=== PATIENT | male | born 1945 | race Caucasian/White ===

== ENCOUNTER 2017-02-01 17:03 | Inpatient (IN) | payer OTHER ==
[~2017-02-01] VITALS: Ht 167.6 cm; Wt 108.0 kg
[2017-02-01 17:09] VITALS: BP 139/55; PULSE 66; RESP 16; O2SAT 100
--- NOTE | 2017-02-01 18:30 | ED.REPORT ---
HPI-Abd Pain M 40 and Over Date of Service February 01, 2017 ED Provider: Sean Carpenter DO A 71 year old male with a previous history of renal cell carcinoma s/p left nephrectomy (2016) and [place] presents to the ED with abdominal discomfort that began a few days ago. Patient was sent by his PCP (Dr. Nation) after blood work revealed possible pyelonephritis. Patient has also been experiencing decreased urinary urgency and urinary retention. He denies any recent chest discomfort or dysuria. Nursing Notes Stated Complaint: KINDNEY INFECTION PER BLOOD WORK/SENT FROM DR NATION Chief Complaint: Male Abdominal Pain Nursing Notes Reviewed: Yes Allergies: Coded Allergies: No Known Allergies (Unverified , 02/01/17) Scheduled Albuterol/Ipratropium (Combivent Respimat Inhal [place]) 120 Spr/4 Gm Inhaler 1 PUFF IH QID Amlodipine (Amlodipine) 5 Mg Tablet 5 MG PO DAILY Ascorbic Acid (Vitamin C) 500 Mg Capsule.er 500 MG PO DAILY Aspirin (Aspirin) 81 Mg Tablet 81 MG PO DAILY Atorvastatin (Lipitor) 10 Mg Tab 10 MG PO DAILY Budesonide/Formoterol 160-4.5 mcg Inh (Symbicort 160-4.5 mcg Inh) 120 Puff Inhaler 1 PUFF INHALATION BID Calcipotriene Cream (Calcipotriene Cream) 30 Appl/60 Gm Cream 1 APPLIC TOPICAL BID Cholecalciferol (Vitamin D3) (Vitamin D3) 1,000 Unit Tab.chew 2,000 UNIT PO DAILY Cyanocobalamin (Vitamin B-12) (Vitamin B-12) 1,000 Mcg Tab.subl 1,000 MCG SL DAILY Febuxostat (Uloric) 40 Mg Tablet 40 MG PO DAILY Ferrous Sulfate (Ferrous Sulfate) 325 Mg Tablet 325 MG PO Q2DAY Fluticasone Propionate (Fluticasone Propionate Nasal) 16 Gm [place].susp 2 SPRAY NS DAILY Gabapentin (Gabapentin) 300 Mg Capsule 300 MG PO HS Losartan Potassium (Losartan Potassium) 25 Mg Tablet 25 MG PO DAILY Metoprolol Succinate ER (Metoprolol Succinate ER) 25 Mg Tab.er.24h 12.5 MG PO BID Montelukast (Montelukast) 10 Mg Tablet 10 MG PO DAILY [place]-3/Dha/Epa/Fish Oil (Fish Oil 1,000 mg Softgel) 1 Each Capsule 1 EACH PO BID Omeprazole (Omeprazole) 20 Mg Capsule.dr 20 MG PO BID Prazosin (Prazosin) 1 Mg Capsule 3 MG PO HS Sertraline HCl (Sertraline) 100 Mg Tablet 100 MG PO DAILY Scheduled PRN Acetaminophen/Codeine 300-30mg (Acetaminophen/Codeine 300-30mg) 1 Each Tablet 1 TABLET PO QID PRN PRN Pain Carbamide Peroxide (Earwax Treatment Drops) 6.5 % Drops 5-10 DROP OT BID PRN PRN ear wax removal Lidocaine (Lidoderm) 700 Mg Adh..patch 1 PATCH TP DAILY PRN PRN For Pain Lidocaine Cream (Lidocaine Cream) 5 Gm Cream..g. 1 APPLIC TOPICAL DAILY PRN PRN joint pain General Time Seen by MD: 18:29 Chief Complaint Abdominal pain Hx Obtained From: Patient Arrived By: Walk-in Sudden in Onset?: No Symptom Duration: Since onset Progression since Onset: Unchanged Quality: Painful Radiation: : Does not radiate Severity: Current: Mild Severity: Maximum: Mild Associated with: Reports: Urinary retention, Denies: Chest pain, Urinary tract symptoms Pertinent Negative: Pt denies other symptoms Recent Healthcare: No recent hospitalization, Recent doctor visit Risk Factors )( AAA Risk Stratification Risk factors reviewed Past Medical History Current medication list includes: 180 mg of Marah gingko mens 50+ MV 81 mg of ASA 1 mg of Prazosin 5 mg of amlodipine vitamin D (200mg) vitamin B12 (1000mg) vitamin C Fish oil (1000mg) 300mg of gabapentin 10 mg of atorvastatin Magnesium Iron (325mg) 25 BID metoprolol 210 mg febuxostat Omeprazole 20mg BID Tylenol Past Medical History Renal cell carcinoma [place] Past Surgical History Nephrectomy (2016) Smoking History Unknown if Ever Smoker Social History Other Social History: Good social support, Ambulatory Status Independent Review of Systems Cardiovascular: Denies: Chest pain, Palpitations GI: Reports: Abdominal pain Male: Reports Urinary urgency, Reports Urination decreased, Denies Dysuria Complete sys rev & neg: except as marked. Physical Exam Initial Vital Signs Vital Signs (First) Date Time Temp Pulse Resp B/P Pulse Ox O2 Delivery O2 Flow Rate FiO2 02/01/17 17:09 36.2 66 16 139/55 100 Room Air Initial VS: Reviewed Head / Eyes: Atraumatic, Normocephalic, PERRL Neck: Supple, Non-tender, Full range of motion Skin: Warm, Dry, No cyanosis Neurologic: Alert, Oriented, Nonfocal Psychiatric: Mood/affect normal, Behavior normal, Normal thought content General/Constitutional: Awake, Alert, No acute distress, Well appearing, Well developed Respiratory / Chest: Atraumatic, Breath sounds NL, Breath sounds = bilat, No respiratory distress Cardiovascular: Heart rate NL, Regular rhythm, Heart sounds NL Lower Ext Edema: Positive: Non-Pitting (Bilateral) Abdomen: Atraumatic, Soft, Non-tender Back: Atraumatic, Inspection NL Upper Extremity / MS: Atraumatic, Inspection NL, Neurologic intact, Vascular intact Lower Extremity / Pelvis / MS: Atraumatic, Neurologic intact, Vascular intact Interpretation & Diagnostics US RETROPERITONEAL SONOGRAM Read by Radiology IMPRESSION: 1. Normal ultrasound appearance of right kidney. No hydronephrosis. 2. Left nephrectomy. 3. Cholelithiasis with a non-mobile gallstone. Dictated by: Barbara Leo M.D. on 02/01/2017 at 21:31 Lab Results Interpretation Result Diagram: 02/01/17 1915 02/01/17 2119 Test 02/01/17 17:58 02/01/17 19:15 02/01/17 21:19 Urine Color Yellow (YELLOW) Urine Appearance Clear (CLEAR,HAZY) Urine pH 5.5 (5.0-8.0) Urine Specific [place] 1.020 (1.003-1.035) Urine Protein Tracemg/dL (NEG,TRACE) Urine Glucose (UA) Negativemg/dL (NEGATIVE) Urine Ketones Negativemg/dL (NEGATIVE) Urine Occult Blood Negative (NEGATIVE) Urine Nitrite Negative (NEGATIVE) Urine Bilirubin Negative (NEGATIVE) Urine Urobilinogen Normalmg/dL (NORMAL) Urine Leukocyte Esterase Negative (NEGATIVE) Urine RBC 0-2/hpf (0-2) Urine WBC 0-5/hpf (0-5) Urine Epithelial Cells Occasional/hpf (NONE-MOD) Urine Crystals None seen (NONE SEEN) Urine Bacteria None/hpf (NONE-FEW) Urine Hyaline Casts None/lpf (NONE) Urine Granular Casts Rare (NONE SEEN) Urine Waxy Casts None seen (NONE SEEN) Urine Red Blood Cell Casts None seen (NONE SEEN) Urine White Blood Cell Casts None seen (NONE SEEN) Urine Mucus None seen (None Seen) Urine Trichomonas None seen (NONE SEEN) Urine Yeast None (NONE SEEN) Urinalysis Comment None Urine Culture Reflexed Not indicated Hold Urine Received (Received) White Blood Count 9.8th/mm3 (3.8-10.1) Red Blood Count 4.77mil/mm3 (4.40-5.80) Hemoglobin 13.1g/dL (13.8-17.2) Hematocrit 39.9% (41.0-50.0) Mean Corpuscular Volume 83.6fL (81-100) Mean Corpuscular Hemoglobin 27.5pg (27.0-35.0) Mean Corpuscular Hemoglobin Concent 32.8% (32.0-37.0) Red Cell Distribution Width 14.5% (12.3-15.4) Platelet Count 257bil/L (150-400) Neutrophils (%) (Auto) 92.0% (40-74) Lymphocytes (%) (Auto) 4.0% (14-46) Monocytes (%) (Auto) 3.3% (4-12) Eosinophils (%) (Auto) 0.3% (0-5) Basophils (%) (Auto) 0.1% (0-3) Sodium Level 133mEq/L (134-144) Chloride Level 102mEq/L (97-108) Carbon Dioxide Level 18mmol/L (18-29) Blood Urea Nitrogen 36mg/dL (8-27) Creatinine 2.37mg/dL (0.76-1.27) Estimat Glomerular Filtration Rate 29mL/min (>59) Glucose Level 134mg/dL (60-99) Calcium Level 9.5mg/dL (8.5-10.1) Total Bilirubin 0.3mg/dL (0.0-1.2) Aspartate Amino Transf (AST/SGOT) 15U/L (0-50) Alanine Aminotransferase (ALT/SGPT) 10U/L (0-44) Alkaline Phosphatase 136U/L (25-160) Total Protein 8.9g/dL (6.4-8.4) Albumin 4.0g/dL (3.4-5.0) Hold [place] Top Tube Received (Received) Potassium Level 6.0mEq/L (3.5-5.2) ECG Interpretation ECG Interpretation: Sinus Rhythm Rate 63 No signs of hyperkalemia T waves flat Time: 20:04 Interpreted by: ED physician X-Ray Abdominal Interpretation Re-Eval/Medical Decision Med Decision/Clinical Course 71-year-old male resents with hyperkalemia and associated acute on chronic renal insufficiency related to prior nephrectomy and multiple medical comorbidities. He was fluid resuscitated carefully. The hyperkalemia was treated with insulin, glucose, albuterol, Kayexalate and IV fluids. The potassium came down from 6.9 to 6 EKG showed sinus rhythm without peaking T waves Ultrasound of his bladder showed that he had an empty bladder. Ultrasound of his kidneys showed that he does not have hydronephrosis. I consulted with nephrology. The plan will be admission to the hospital careful hydration and further evaluation of his azotemia and electrolyte abnormality. Time of Eval: 20:11 Patient Status: Condition improved Re-Evaluation/Progress Note: He is informed of his lab results and diagnosis. All of the patient's questions about being admitted are addressed. Consultation #1: Referral / Consult Name: Cherelle Rangel DO Consulted With: Hospitalist Call Returned at: 22:24 Maintenance Electrician: Will see patient, Agrees with eval, Agrees with plan, Accepts admit Consultation #2: Referral / Consult Name: Franklin Magallanes DO Consulted With: Nephrology Call Returned at: 20:23 Maintenance Electrician: Will see patient, Agrees with eval, Agrees with plan Counseled Regarding: Diagnosis, Lab results, Need for admission Discharge & Departure Primary Impression: Hyperkalemia Additional Impression: Acute renal insufficiency Disposition: ADMITTED TO HOSPITAL Vital Signs - All Vital Signs Date Time Temp Pulse Resp B/P Pulse Ox O2 Delivery O2 Flow Rate FiO2 02/01/17 21:10 76 19 155/53 98 02/01/17 20:08 69 22 149/46 97 Room Air 02/01/17 17:09 36.2 66 16 139/55 100 Room Air )( All Prior VS Reviewed: Yes Condition: Stable Referrals: [facility] Crit Care Except Billable Proc Time Spent: 75-104 minutes (managing hyperkalemia with iv medications) Services Performed: Patient management by me, Time spent at bedside, Reviewing test results, Reviewing imaging, Discussing patient care, Documentation in record, Time with fam/surrogate Scribe Attestation Portions of this note were transcribed by Jeannette Campos. I, Dr. Carpenter personally performed the history, physical exam and medical decision-making; I reviewed and confirmed the accuracy of the information in the transcribed note. Signed by: Bryan Moser, 02/01/17 [id number]. copies to: [facility] Sean Carpenter DO February 01, 2017 18:30 JEANNETTE CAMPOS February 01, 2017 18:45
[2017-02-01 19:27] LABS: BASOPHILS % (AUTO) 0.1 % (0-3); EOSINOPHILS % (AUTO) 0.3 % (0-5); MONOCYTES % (AUTO) 3.3 % (4-12); Mean Corpuscular Hemoglobin 27.5 pg (27.0-35.0); Mean Corpuscular Volume 83.6 fL (81-100); Platelet Count 257 bil/L (150-400)
[2017-02-01] MEDS ORDERED: Dextrose 10% 250 ML in IV Bag 1 EACH IV ONE (19:55)
[2017-02-01] MEDS ORDERED: Insulin Human REGular-Omnicell 100 Unit/mL IV ONE (19:55)
[2017-02-01] MEDS ORDERED: 0.9% Sodium Chloride 1,000 ML IV SCH (19:55)
[2017-02-01] MEDS ORDERED: Albuterol 2.5 mg/3 mL Inhalation Solution NEB ONE (20:00)
[2017-02-01 20:08] VITALS: BP 149/46; PULSE 69; RESP 22; O2SAT 97
[2017-02-01] MEDS ORDERED: DEXTROSE IV ONE (20:20)
[2017-02-01 21:10] VITALS: BP 155/53; PULSE 76; RESP 19; O2SAT 98
[2017-02-01] MEDS ORDERED: LIDO5CRE17 TOPICAL (21:10)
[2017-02-01] MEDS ORDERED: ASCO500C6 PO (21:10)
[2017-02-01] MEDS ORDERED: IPRA4AER IH (21:10)
[2017-02-01] MEDS ORDERED: PRAZ1CAP2 PO (21:10)
[2017-02-01] MEDS ORDERED: ASPI-973 PO (21:10)
[2017-02-01] MEDS ORDERED: CYAN100017 SL (21:10)
[2017-02-01] MEDS ORDERED: CALC60CR3 TOPICAL (21:10)
[2017-02-01] MEDS ORDERED: SYMINH INHALATION (21:10)
[2017-02-01] MEDS ORDERED: OMEG-38 PO (21:10)
[2017-02-01] MEDS ORDERED: SERT100T9 PO (21:10)
[2017-02-01] MEDS ORDERED: CARB-199 OT (21:10)
[2017-02-01] MEDS ORDERED: GABA-502 PO (21:10)
[2017-02-01] MEDS ORDERED: MONT10TA23 PO (21:10)
[2017-02-01] MEDS ORDERED: METO25TA99 PO (21:10)
[2017-02-01] MEDS ORDERED: LOSA25TA21 PO (21:10)
[2017-02-01] MEDS ORDERED: ATRV10T PO (21:10)
[2017-02-01] MEDS ORDERED: AMLO5TAB2 PO (21:10)
[2017-02-01] MEDS ORDERED: OMEP20CA11 PO (21:10)
[2017-02-01] MEDS ORDERED: CHOL10008 PO (21:10)
[2017-02-01] MEDS ORDERED: FERR-83 PO (21:10)
[2017-02-01] MEDS ORDERED: FLUT16SP NS (21:10)
[2017-02-01] MEDS ORDERED: ACET1TAB42 PO (21:10)
[2017-02-01] MEDS ORDERED: FEBU40TA PO (21:10)
[2017-02-01] MEDS ORDERED: LIDO700A6 TP (21:12)
--- NOTE | 2017-02-01 21:37 | DRSVH ---
PROCEDURE: US RETROPERITONEAL SONOGRAM ([id number]) INDICATIONS: acute renal failure, post nephrectomy, hyperkalemi TECHNIQUE: Real-time scanning was performed of the kidneys and bladder, with image documentation. COMPARISON: None. FINDINGS: Kidneys: Left kidney is surgically absent. Right kidney measures 12.3 cm long. Right renal cortical thickness is 2.2 cm. Renal cortical echotexture is normal. No hydronephrosis or nephrolithiasis. No suspicious solid mass lesions. Incidentally noted is a non-mobile gallstone and gallbladder sludg e. No gallbladder with thickening. Bladder: Pre-void bladder volume is 179 mL. Post-void residual is 0 mL. Pre-void images demonstrat e no intraluminal masses or stones. On pre-void images, the right ureteral jet is noted with color D oppler interrogation. (Of note, ureteral jets may not be detectable in up to 25% of cases due to ins ufficient differences in specific gravity between ureteral and bladder urine). Miscellaneous: No free pelvic fluid. IMPRESSION: 1. Normal ultrasound appearance of right kidney. No hydronephrosis. 2. Left nephrectomy. 3. Cholelithiasis with a non-mobile gallstone. Dictated by: Barbara Leo M.D. on 02/01/2017 at 21:31 Approved by: Barbara Leo M.D. on 02/01/2017 at 21:35
[2017-02-01 23:56] LABS: APPEARANCE,URINE CLEAR (CLEAR,HAZY); COLOR,URINE YELLOW (YELLOW); OCCULT BLOOD,URINE NEGATIVE (NEGATIVE); PH,URINE 5.5 (5.0-8.0)
[2017-02-01 23:57] LABS: UROBILINOGEN,URINE NORMAL (NORMAL)
[2017-02-02] VITALS (13 sets, daily range): BP systolic 144–166; BP diastolic 50–79; PULSE 66–105; RESP 18–24; O2SAT 93–99
[2017-02-02] MEDS ORDERED: Ondansetron 2 mg/mL 2 mL Inj IVPUSH PRN (00:35)
[2017-02-02] MEDS ORDERED: Polyethylene Glycol (PEG) 17 Gm Powder PO PRN (00:35)
[2017-02-02] MEDS ORDERED: Alum-Mag Hydrox-Simeth 30 mL Suspension PO PRN (00:35)
--- NOTE | 2017-02-02 01:26 | PCM.HPMED ---
Subjective Date of Service February 02, 2017 Primary Provider: Admitting Physician: Cherelle Rangel DO [facility]: Cherelle Rangel DO Admit Status: From the Emergency Department Chief Complaint: Hyperkalemia History of Present Illness: Kd Denise is a 71 year old man with a PMH of Left renal cell carcinoma s/p radical nephrectomy, [place], iron deficiency anemia, hyperlipidemia, COPD, depression, BPH, and HTN who presents at the request of his PCP(Dr. Howell) who in the course of running routine labs he was found to have a potassium of 6.8. He was entirely asymptomatic prior to arrival. The patient had unremarkable ECG upon presentation to the ED. He denies chest pain, palpitations, abdominal pain , or changes in bowel or bladder habits. In the ED the patient was given Insulin and glucose, Kayexalate, and started on IV fluids per Dr. Magallanes who was made aware of the case and will likely see the patient tomorrow AM. Review of Systems: Comprehensive ROS negative except as outlined above in the HPI. Allergies Coded Allergies: No Known Allergies (Unverified , 02/01/17) Home Medications Scheduled Albuterol/Ipratropium (Combivent Respimat Inhal [place]) 120 Spr/4 Gm Inhaler 1 PUFF IH QID Amlodipine (Amlodipine) 5 Mg Tablet 5 MG PO DAILY Ascorbic Acid (Vitamin C) 500 Mg Capsule.er 500 MG PO DAILY Aspirin (Aspirin) 81 Mg Tablet 81 MG PO DAILY Atorvastatin (Lipitor) 10 Mg Tab 10 MG PO DAILY Budesonide/Formoterol 160-4.5 mcg Inh (Symbicort 160-4.5 mcg Inh) 120 Puff Inhaler 1 PUFF INHALATION BID Calcipotriene Cream (Calcipotriene Cream) 30 Appl/60 Gm Cream 1 APPLIC TOPICAL BID Cholecalciferol (Vitamin D3) (Vitamin D3) 1,000 Unit Tab.chew 2,000 UNIT PO DAILY Cyanocobalamin (Vitamin B-12) (Vitamin B-12) 1,000 Mcg Tab.subl 1,000 MCG SL DAILY Febuxostat (Uloric) 40 Mg Tablet 40 MG PO DAILY Ferrous Sulfate (Ferrous Sulfate) 325 Mg Tablet 325 MG PO Q2DAY Fluticasone Propionate (Fluticasone Propionate Nasal) 16 Gm [place].susp 2 SPRAY NS DAILY Gabapentin (Gabapentin) 300 Mg Capsule 300 MG PO HS Losartan Potassium (Losartan Potassium) 25 Mg Tablet 25 MG PO DAILY Metoprolol Succinate ER (Metoprolol Succinate ER) 25 Mg Tab.er.24h 12.5 MG PO BID Montelukast (Montelukast) 10 Mg Tablet 10 MG PO DAILY [place]-3/Dha/Epa/Fish Oil (Fish Oil 1,000 mg Softgel) 1 Each Capsule 1 EACH PO BID Omeprazole (Omeprazole) 20 Mg Capsule.dr 20 MG PO BID Prazosin (Prazosin) 1 Mg Capsule 3 MG PO HS Sertraline HCl (Sertraline) 100 Mg Tablet 100 MG PO DAILY Scheduled PRN Acetaminophen/Codeine 300-30mg (Acetaminophen/Codeine 300-30mg) 1 Each Tablet 1 TABLET PO QID PRN PRN Pain Carbamide Peroxide (Earwax Treatment Drops) 6.5 % Drops 5-10 DROP OT BID PRN PRN ear wax removal Lidocaine (Lidoderm) 700 Mg Adh..patch 1 PATCH TP DAILY PRN PRN For Pain Lidocaine Cream (Lidocaine Cream) 5 Gm Cream..g. 1 APPLIC TOPICAL DAILY PRN PRN joint pain PMH Left renal cell carcinoma s/p radical nephrectomy CKD HTN Hyperlipidemia COPD Iron deficiency anemia depression BPH Surgical History Left radical nephrectomy 2016 Family History Family history of DM2 and HTN in multiple family members. Social History Hx Alcohol Use: Yes (Patient not currently drinking) Hx Substance Use: No Hx Tobacco Use: No Smoking Status: Never Smoker, Unknown if Ever Smoker Exam Vital Signs Vital Sign - Last Date Time Temp Pulse Resp B/P Pulse Ox O2 Delivery O2 Flow Rate FiO2 02/02/17 01:01 36.6 68 20 155/65 97 Room Air Intake and Output 02/01/17 02/01/17 02/02/17 Cumulative From/Thru 15:00 23:00 07:00 02/01/17 17:09 - 02/02/17 00:58 Intake Total 150 ml 150 ml Output Total 200 ml 200 ml Balance -50 ml -50 ml Intake IV Total 150 ml 150 ml Output Urine Total 200 ml 200 ml # Voids 1 1 Exam Gen: A/O x3 pleasant cooperative obese man in NAD Neck: Large Bull neck, no JVD, supple, non tender, Full ROM HEENT: PERRL, EOMI, no scleral icterus, no conjunctival pallor CV: RRR, no murmurs rubs or gallops Resp: Lungs CTA BL, no wheezing rales or rhonchi Abd: Large obese protuberant belly, no fluid wave, cannot palpate organs, BS + 4Q, no rebound or guarding, no palpable masses Extr: No cyanosis clubbing or edema Neuro: CN 2-12 grossly intact, no focal neurologic deficit Psych: Pleasant and appropriate mood and affect. Lab and Diagnostics Labs Item Value Date Time Red Blood Count 4.77 mil/mm3 02/01/171914 Neutrophils (%) (Auto) 92.0 % H 02/01/171914 Lymphocytes (%) (Auto) 4.0 % L 02/01/171914 Monocytes (%) (Auto) 3.3 % L 02/01/171914 Eosinophils (%) (Auto) 0.3 % 02/01/171914 Basophils (%) (Auto) 0.1 % 02/01/171914 Estimat Glomerular Filtration Rate 29 mL/min 02/01/171914 Calcium Level 9.5 mg/dL 02/01/171914 Total Bilirubin 0.3 mg/dL 02/01/171914 Aspartate Amino Transf (AST/SGOT) 15 U/L 02/01/171914 Alanine Aminotransferase (ALT/SGPT) 10 U/L 02/01/171914 Alkaline Phosphatase 136 U/L 02/01/171914 Total Protein 8.9 g/dL H 02/01/171914 Albumin 4.0 g/dL 02/01/171914 Result Diagram: 02/01/17191402/01/172118 X-Rays, CTs and MRIs US RETROPERITONEAL SONOGRAM IMPRESSION: 1. Normal ultrasound appearance of right kidney. No hydronephrosis. 2. Left nephrectomy. 3. Cholelithiasis with a non-mobile gallstone. Dictated by: Barbara Leo M.D. on 02/01/2017 at 21:31 Approved by: Barbara Leo M.D. on 02/01/2017 at 21:35 . 12-lead ECG NSR, low voltage leads likely secondary to habitus Assessment & Plan Kd Deinse is a 71 year old male with a PMH of Left renal cell carcinoma s/p radical nephrectomy in 2016 who presents at the behest of his PCP who in the course of routine lab work observed hyperkalemia, which was measured at 6.8 upon presentation. 1. Hyperkalemia, POA, likely acute. Active -Likely secondary to CKD or COURTNEY, baseline Cr uncertain as he has no labs on file and PCP is not in our system -Request PCP records tomorrow AM to establish baseline Cr -6.8 upon presentation, 6.0 upon re-assessment, serial measures q4 -Patient given Insulin, glucose, and Kayexalate in the ED -Continue home Albuterol/ipratropium bromide -Will consider calcium gluconate at next lab measure if downward trend does not continue -NS @ 100 ml/hr -Telemetry monitoring -Patient will be seen by Nephrology in the AM 2. S/P radical nephrectomy, POA, chronic. Active -Cr. elevated at 2.39 with uncertain baseline -BP elevated at 130-150/80-90, baseline BP unknown, home meds include Losartan, amlodipine, and Metoprolol -Avoid nephrotoxic medications -IVF as above -Nephrology will see him in the AM 3. HTN, POA, chronic. active -HOLD home Losartan 25 mg PO daily -Continue home Metoprolol Tartrate 12.5 mg PO BID -Continue home amlodipine 5 mg PO daily 4. COPD, POA, chronic. Active -Switched home med to DuoNeb -Continue home Singulair -Monitor O2 -Supplemental O2 as needed for O2 sat > 86 Other chronic conditions managed with home meds -Depression: Continue home Sertraline -Unspecified neuropathy: Continue home Gabapentin -BPH: Continue home Prazosin Code Status: FULL CODE disposition: Inpatient, anticipated length of stay >2 midnight depending upon evaluation by nephrology and clinical course Pain Evaluation: Adequate Pain Control GI Prophylaxis: H2 ginger VTE Prophylaxis: Sub-Q Heparin (Unfractionated) VTE Mechanical Devices: Intermittant Pneumatic CD Resuscitation Status: CPR: Attempt Resuscitation Attending Statement The patient was seen and examined together with house staff on 02/02/2017 and I agree with the history, exam and plan as outlined in the note above. Soren Singh DO February 02, 2017 01:26 Cherelle Rangel DO February 02, 2017 05:48
[2017-02-02] MEDS: 0.9% Sodium Chloride 1,000 ML IV SCH ×2 (01:34→10:35)
[2017-02-02] MEDS: Albuterol-Ipratropium 3 mL Inhalation Solution NEB SCH ×4 (02:30→21:02)
[2017-02-02] MEDS ORDERED: Insulin Human REGular-Omnicell 100 Unit/mL IV ONE (03:30)
[2017-02-02] MEDS ORDERED: Calcium GLUCOnate 10% (Gm) 1 Gm/10 mL Inj IVPUSH PRN (03:30)
[2017-02-02] MEDS ORDERED: Albuterol 0.5% (5mg/mL) 20 mL Inhalation Solution NEB ONE (03:30)
[2017-02-02] MEDS ORDERED: Dextrose 10% 250 ML IV ONE (03:30)
--- NOTE | 2017-02-02 05:27 | NUR ---
[place] [facility] Patient arrived at 0100. alert and orientedx4 able to make needs known. denies pain. IV SL. RA. Vitals stable. tele in place. admission assessment completed. med rec completed by family in ER. will continue to monitor.
--- NOTE | 2017-02-02 05:30 | NUR ---
Hyperkalemia Lab notified me of critical potassium 6.4. paged new order for insulin, Kayexalate, and albuterol. Patient blood sugar 139 preinsulin. 30 minutes later patient blood sugar 136. no s/s of hypoglycemia. Patient denies pain/discomfort. Tele in place. patient had one BM and states "I feel much better". will continue to monitor.
[2017-02-02 06:00] LABS: BASOPHILS % (AUTO) 0.1 % (0-3); EOSINOPHILS % (AUTO) 0 % (0-5); MONOCYTES % (AUTO) 5.2 % (4-12); Mean Corpuscular Hemoglobin 27.7 pg (27.0-35.0); Mean Corpuscular Volume 83.7 fL (81-100); NEUTROPHILS % (AUTO) 81.8 % (40-74); Platelet Count 238 bil/L (150-400)
--- NOTE | 2017-02-02 06:40 | NUR ---
Vtach Patient had three runs of v-tach 6-7 beats a piece. Patient sleeping. denies pain/discomfort. denies palpitations. states "sometimes the albuterol they give me makes my heartbeat fast, but i feel fine." vitals stable. MD aware. will continue to monitor. AM labs pending.
[2017-02-02] MEDS: Omega-3 Fatty Acids 1,000 mg Capsule PO SCH ×2 (08:24→19:45)
[2017-02-02] MEDS: Ascorbic Acid 500 mg Tablet PO SCH (08:24)
[2017-02-02] MEDS: MeTOProlol XL 25 mg ER24 Tablet PO SCH ×2 (08:25→19:45)
[2017-02-02] MEDS: FEBUXOSTAT 40 MG PO SCH (08:30)
[2017-02-02] MEDS: Heparin 5,000 Unit/mL Inj SUBQ SCH ×2 (08:30→16:29)
[2017-02-02] MEDS: CALCIPOTRIENE 0.005% TOPICAL SCH ×2 (08:30→20:00)
[2017-02-02] MEDS: Sodium Chloride LOK Flush 10 mL Syringe IVFLUSH SCH ×2 (08:30→16:29)
[2017-02-02] MEDS: Fluticasone-Salmererol 250-50 Inhaler INHALATION SCH ×2 (08:36→19:46)
[2017-02-02] MEDS: Fluticasone 0.05% 15 Spray/2 Gm 16 Gm Nasal Spray NOSTRIL SCH (08:37)
--- NOTE | 2017-02-02 15:48 | DRSVH ---
PROCEDURE: MRI BRAIN WITHOUT CONTRAST ([id number]) INDICATIONS: Multiinfarct dementia TECHNIQUE: Non-contrast axial T1 spin echo, axial T2 fast spin echo, sagittal and axial FLAIR, coronal T2 fast s pin echo, axial gradient echo, axial diffusion and ADC through the brain. COMPARISON: None. FINDINGS: Image quality: Excellent. CSF spaces: Ventricles appear symmetric in size and shape. Basal cisterns are patent. No extra-axi al fluid collections. Brain: No intracranial bleeds or mass effects. There is cerebral volume loss for age. There are pe riventricular and deep white matter chronic small vessel ischemic changes. Brainstem appears normal. Diffusion-weighted images show no acute ischemic insults. No chronic ischemic insults. Normal int ravascular flow voids are present. Skull and face: Calvarial bone marrow is normal in signal. Orbits are normal. Sinuses: Sinuses are clear. Fluid signal is present in the mastoids, left greater than right. IMPRESSION: 1. Age-related atrophy and chronic deep white matter ischemic changes. 2. No acute intracranial abnormality. Despite the clinical history, evidence of multiple infarcts is not seen. Dictated by: Eriberto Ovalle M.D. on 02/02/2017 at 15:43 Approved by: Eriberto Ovalle M.D. on 02/02/2017 at 15:46
--- NOTE | 2017-02-02 17:43 | NUR ---
Uneventful Pt pleasant and cooperative with care. Pt is independent in room, SL, and RA. Pt currently resting comfortably in bed with call light within reach, bed low and locked, intentional rounding.
[2017-02-03] VITALS (10 sets, daily range): BP systolic 129–166; BP diastolic 62–89; PULSE 64–86; RESP 18–24; O2SAT 94–97
[2017-02-03] MEDS: Heparin 5,000 Unit/mL Inj SUBQ SCH ×3 (00:24→16:38)
[2017-02-03] MEDS: Sodium Chloride LOK Flush 10 mL Syringe IVFLUSH SCH ×4 (00:24→23:08)
[2017-02-03] MEDS: Albuterol-Ipratropium 3 mL Inhalation Solution NEB SCH ×4 (02:11→19:41)
--- NOTE | 2017-02-03 04:09 | NUR ---
Uneventful Patient slept throughout the night. denies pain. independent in room. SL. RA. Vitals stable. Will continue to monitor
--- NOTE | 2017-02-03 04:35 | CONS ---
[address] [address] CONSULTATION REPORT PATIENT: LOU CRANE : 1945 MR#: [id number] ADMIT: 02/01/2017 JOB ID: [id number] DATE OF SERVICE: HISTORY OF PRESENT ILLNESS: The patient is a very pleasant 71-year-old gentleman who was admitted to [facility] for acute kidney injury. Renal consultation is being sought for further evaluation of his acute kidney injury. The patient is somewhat of a poor historian and there are some different versions of his history. He underwent a left nephrectomy about a year ago at [facility] for renal cell carcinoma. This arose out of some persistent left CVA pain and evaluation of this revealed renal cell carcinoma. He states that following surgery he did not have any radiation or chemotherapy. He has been followed up on a regular basis. In further questioning him, he states that for the last few months he has been taking a variety of nonsteroidal anti-inflammatories [id number] for various arthritic pains. He had some routine blood work done at the [facility] several days ago and his creatinine was found to be elevated at 2.37 and his potassium was 6.9. He was advised to come to the emergency department for further evaluation. Unfortunately, I do not have any baseline creatinine to compare this to. He denies history of any prior hematuria, proteinuria, recurrent urinary tract infections, renal lithiasis, diabetes, or hepatitis. He does have obstructive sleep apnea for which he uses a CPAP machine. He also states that he has a history of hypertension of unknown duration. His home blood pressure systolic readings have averaged between 150 and 160. He has moderate sodium intake. He denies any history of visual problems, seizure . He does state that he has asthma and has intermittent cough and wheezing. He also states that he has had intermittent episodes of chest pain associated with shortness of breath with exertion. There is a history of an MN per the patient approximately three months prior to his surgery. At that time, he was seen at the [facility], and it does not sound like there was a catheterization done. He denies any paroxysmal nocturnal dyspnea or lower extremity edema. He denies any nausea, vomiting, constipation, diarrhea, or significant change in his weight. He does state that he has had some progressive problems with short-term memory issues. PAST MEDICAL HISTORY: Is significant for renal cell carcinoma, status post left nephrectomy as detailed above, hypertension with hypertensive heart disease and hypertensive nephrosclerosis, coronary artery disease, obstructive sleep apnea, he also has a history of asthma, hyperlipidemia, gout, iron deficiency anemia, and depression. PAST SURGICAL HISTORY: Is remarkable for left nephrectomy as detailed above. ALLERGIES: He has no allergy to food or medications. FAMILY HISTORY: Remarkable for diabetes, hypertension, however, there is no history of any renal problems. SOCIAL HISTORY: He denies a history of tobacco use, and states that he currently does not use alcohol or illicit drugs. MEDICATIONS: At time of admission included Combivent inhaler, amlodipine, ascorbic acid, aspirin, atorvastatin, Symbicort inhaler, vitamin D, vitamin B12, Uloric, ferrous sulfate, fluticasone nasal spray, gabapentin, losartan, metoprolol, montelukast, prazosin and sertraline. PHYSICAL EXAMINATION: Revealed a morbidly obese 71-year-old gentleman who was alert and oriented x3 and was not in any distress. His blood pressure was 165/65 with a heart rate of 105. HEENT examination: Remarkable for mild to moderate conjunctival injection. Sclerae, pupils and extraocular muscles were within normal limits. Neck: Supple without adenopathy, thyromegaly or jugular venous distention. Lungs: Clear to auscultation. Heart: Regular and rhythmical with a soft systolic murmur. Abdomen: Distended, but there was no evidence of any diminished bowel sounds. There was no tenderness, rebound, guarding, masses or hepatosplenomegaly. Extremities do not show any evidence of any clubbing, cyanosis, or edema. Skin turgor was good and there was no evidence of any rashes. LABORATORY EXAMINATION: This morning, his white count is 7.7, hemoglobin of 12.6, hematocrit 38.1. Red cell indices, platelet count and differential were normal. This morning, his sodium is 140, potassium 4.9, chloride 106, bicarbonate 15. BUN and creatinine were 31 and 2.0. Glucose was 151. Liver function studies were unremarkable. Urinalysis showed a specific gravity 1.020, pH was 5.5. There was trace protein, however, the rest of his urinalysis was unremarkable. Ultrasound of his remaining kidney showed normal architecture with normal corticomedullary differentiation. There was no evidence of any masses or obstruction. He did have a mild increase in his postvoid residual. IMPRESSION: 1. Acute kidney injury secondary to drug-induced acute kidney injury from nonsteroidals. 2. Solitary kidney. 3. Metabolic syndrome. 4. Hypertension with hypertensive heart disease and hypertensive nephrosclerosis. 5. Chronic kidney disease stage III. 6. Coronary artery disease. 7. 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 RECOMMENDATION: I would like to obtain an echocardiogram along with a urine for microalbumin. I would also like to get a hemoglobin A1c along with a serum protein electrophoresis and a uric acid level. I am concerned about some of his memory issues and his blood pressure, and I will go ahead and order an MRI of his brain, and I will be adjusting his blood pressure medicines once I get an idea of what his baseline creatinine [facility]. Once again, I would like to thank you for allowing me to participate in the care of this most pleasant, interesting patient. I will be following him closely with you.
[2017-02-03 06:12] LABS: Hepatitis A Antibody IgM Negative (Negative); Hepatitis B Core Antibody IgM Negative (Negative)
[2017-02-03] MEDS: Ascorbic Acid 500 mg Tablet PO SCH (08:25)
[2017-02-03] MEDS: Fluticasone-Salmererol 250-50 Inhaler INHALATION SCH ×2 (08:25→21:12)
[2017-02-03] MEDS: Fluticasone 0.05% 15 Spray/2 Gm 16 Gm Nasal Spray NOSTRIL SCH (08:25)
[2017-02-03] MEDS: Omega-3 Fatty Acids 1,000 mg Capsule PO SCH ×2 (08:26→21:12)
[2017-02-03] MEDS: FEBUXOSTAT 40 MG PO SCH ×2 (08:30→12:47)
[2017-02-03] MEDS: CALCIPOTRIENE 0.005% TOPICAL SCH ×3 (08:30→21:12)
[2017-02-03] MEDS: MeTOProlol XL 25 mg ER24 Tablet PO SCH ×2 (08:47→21:11)
--- NOTE | 2017-02-03 09:21 | NUR ---
Social Work: Initial Assessment Data: Pt is a 72 y/o male admitted for hyperkalemia, acute renal insufficiency. [facility]. EMR reviewed, no readmit score listed. Pt independent in room. PONY ROLL FINISHER met with pt, role explained. Pt states that he lives in [place] with his where there are no stairs, uses no DME, drives, has hx of HH after a surgery, no SNF hx, no LTC insurance, is not a caregiver. Pt states his son cooks for him and his . No d/c planning needs anticipated. PONY ROLL FINISHER will continue to follow if needs arise. Assessment: Pt who is independent at baseline. Plan: Pt will d/c home via POV with spouse when medically ready for d/c. No d/c planning needs anticipated. PONY ROLL FINISHER will continue to follow if needs arise. SANFORD Marx Addendum: 02/03/[address] [place] Amended: Links added.
--- NOTE | 2017-02-03 09:23 | NUR ---
Student Nurse Note Patient is awake, a&ox3. Calm, cooperative and pleasant. Denies any pain and is ambulating independently as well as making needs known. Patient requested cream for his skin, advised family is to bring it in for him. 97%Ox on RA, VSS.
--- NOTE | 2017-02-03 11:52 | PCM.PNNEPH ---
Subjective Date of Service February 03, 2017 Subjective Please note that I initially saw the patient yesterday, February 02 and at that time a consult was dictated. Unfortunately it is posted is being performed today. The patient states that he feels considerably better today. He denies any headache, chest pain, or shortness of breath. His blood pressures range between a systolic of 260. The last 24 hours his intake and output (2297 and 1875 out. Reviewing his echocardiogram he has an ejection fraction of 40% with evidence of diastolic dysfunction. His right atrium showed a questionable mass/ myxoma. Otherwise he has sodium this morning is 142, potassium 5.2, chloride 109, bicarbonate 19, BUN and creatinine were 32 and 1.65. Hepatitis profile rheumatoid factor were both negative. Was 39 and unfortunately they did not get up urinary creatinine to assess his microalbumin to creatinine ratio. Exam Vital Signs Vital Sign - Last Date Time Temp Pulse Resp B/P Pulse Ox O2 Delivery O2 Flow Rate FiO2 02/03/17 09:22 74 20 97 Room Air 02/03/17 08:51 161/78 02/03/17 05:18 36.6 Intake and Output 02/02/17 02/02/17 02/03/17 Cumulative From/Thru 15:00 23:00 07:00 02/01/17 17:09 - 02/03/17 06:05 Intake Total 1121 ml 976 ml 220 ml 2667 ml Output Total 1425 ml 150 ml 2225 ml Balance 1121 ml -449 ml 70 ml 442 ml Intake Oral 976 ml 220 ml 1396 ml IV Total 1121 ml 1271 ml Output Urine Total 1425 ml 150 ml 2225 ml # Voids 1 # Bowel Movements 1 1 Exam HEENT examination is unremarkable. Neck is supple without adenopathy, thyromegaly, or jugular venous distention. Lungs are clear to auscultation. Heart was regular with a soft systolic murmur. Abdomen soft without any tenderness or rebound guarding or masses noted. Extremities do not show any evidence of any clubbing, cyanosis, or edema. Turgor is good. Lab and Diagnostics Result Diagram: 02/02/17 0530 02/03/17 0537 X-Rays, CTs and MRIs US RETROPERITONEAL SONOGRAM IMPRESSION: 1. Normal ultrasound appearance of right kidney. No hydronephrosis. 2. Left nephrectomy. 3. Cholelithiasis with a non-mobile gallstone. Dictated by: Barbara Leo M.D. on 02/01/2017 at 21:31 Approved by: Barbara Leo M.D. on 02/01/2017 at 21:35 . 12-lead ECG NSR, low voltage leads likely secondary to habitus Plan Impression Impression #1 drug induced acute kidney injury which has resolved #2 stage III chronic kidney disease #3 acquired solitary kidney #4 hypertension with hypertensive heart disease and hypertensive nephrosclerosis with diastolic dysfunction. #5 metabolic syndrome/prediabetes. Recommendation #1 I will go ahead and order a cardiac MRI on the patient. I have discussed case with radiology and apparently only disease on Mondays. This could be done as an inpatient or an outpatient and I have discussed this with the patient and his family. I would like to start him on lisinopril 10 mg along with chlorthalidone 25 mg. From my point of view he could probably be discharged tomorrow. I discussed all the findings and test results with both the patient and his family. Total time spent was 35 minutes. Franklin Magallanes DO February 03, 2017 11:52
--- NOTE | 2017-02-03 14:11 | NUR ---
Spoke with Shahida in patient access at [facility] and this patient is 100% service connected and is PNT. Patient holds MCR A & B Updated CRYSTALIZER TENDER
--- NOTE | 2017-02-03 15:51 | PCM.PNMED ---
Subjective Date of Service February 03, 2017 Subjective Patient was seen and examined at bedside today. Patient denies any chest pain, nausea, vomiting, diarrhea. Patient states that he does still have some shortness of breath that resolves with nebulized treatments. Overnight events: None Exam Vital Signs Vital Sign - Last Date Time Temp Pulse Resp B/P Pulse Ox O2 Delivery O2 Flow Rate FiO2 02/03/17 15:33 77 20 97 Room Air 02/03/17 15:17 36.2 154/64 Intake and Output 02/02/17 02/02/17 02/03/17 Cumulative From/Thru 15:00 23:00 07:00 02/01/17 17:09 - 02/03/17 06:05 Intake Total 1121 ml 976 ml 220 ml 2667 ml Output Total 1425 ml 150 ml 2225 ml Balance 1121 ml -449 ml 70 ml 442 ml Intake Oral 976 ml 220 ml 1396 ml IV Total 1121 ml 1271 ml Output Urine Total 1425 ml 150 ml 2225 ml # Voids 1 # Bowel Movements 1 1 Exam Physical Exam: GEN: Patient was awake, alert, responding appropriately to questions HEENT: Pupils equal round and reactive to light, extraocular eye muscles intact , Neck soft supple, trachea midline, nomocephalic/atraumatic CV: +S1/S2, regular rate and rhythm, no murmurs auscultated Respiratory: CTAB, no wheezes, rales, rhonchi GI: +bowel sounds x4, soft, compressible, nontender to palpation, obese EXT: no clubbing, cyanosis, edema Neuro: Cranial nerves II-XII grossly intact Psych: mood and affect were appropriate IVs and Medications Medications Reviewed: Medications were reviewed in detail Lab and Diagnostics Result Diagram: 02/02/17 0530 02/03/17 0537 X-Rays, CTs and MRIs US RETROPERITONEAL SONOGRAM IMPRESSION: 1. Normal ultrasound appearance of right kidney. No hydronephrosis. 2. Left nephrectomy. 3. Cholelithiasis with a non-mobile gallstone. Dictated by: Barbara Leo M.D. on 02/01/2017 at 21:31 Approved by: Barbara Leo M.D. on 02/01/2017 at 21:35 . 12-lead ECG NSR, low voltage leads likely secondary to habitus Assessment & Plan Kd Denise is a 71 year old male with a PMH of Left renal cell carcinoma s/p radical nephrectomy in 2016 who presents at the behest of his PCP who in the course of routine lab work observed hyperkalemia, which was measured at 6.8 upon presentation. Hyperkalemia, POA, likely acute. (Resolved) -Likely secondary to CKD or COURTNEY, baseline Cr uncertain as he has no labs on file and PCP is not in our system -Currently 5.2 (within normal limits) 6.8 upon presentation, 6.0 upon re- assessment, serial measures q4 -Patient given Insulin, glucose, and Kayexalate in the ED -Continue home Albuterol/ipratropium bromide -Discontinue NS @ 100 ml/hr -Telemetry monitoring -Dr. Magallanes (nephrology) following S/P radical nephrectomy, POA, chronic. (Resolving) -Currently creatinine is 1.65 trending down -Elevated blood pressures being managed by nephrology -Avoid nephrotoxic medications -Dr. Magallanes (nephrology) following HTN, POA, chronic. active -Start lisinopril 10 mg daily -Start chlorthalidone 25 mg daily -HOLD home Losartan 25 mg PO daily -Continue home Metoprolol Tartrate 12.5 mg PO BID -Continue home amlodipine 5 mg PO daily COPD, POA, chronic. Active -Switched home med to DuoNeb -Continue home Singulair -Monitor O2 -Supplemental O2 as needed for O2 sat > 86 Other chronic conditions managed with home meds -Depression: Continue home Sertraline -Unspecified neuropathy: Continue home Gabapentin -BPH: Continue home Prazosin Obesity -Hemoglobin A1c pending -Continue heart healthy diet Code Status: FULL CODE Disposition: The patient seems to be progressing and at this time. Dr. Magallanes has recommended that the patient have a cardiac MRI for further studies. Hemoglobin A1c is still pending along with the urine study that Dr. Magallanes wanted as well. We will follow up in the morning and the patient remained stable he could potentially be discharged home with outpatient follow-up. GI Prophylaxis: H2 ginger VTE Prophylaxis: Sub-Q Heparin (Unfractionated) VTE Mechanical Devices: Intermittant Pneumatic CD Resuscitation Status: CPR: Attempt Resuscitation Gail Rogel DO February 03, 2017 15:51
--- NOTE | 2017-02-03 16:07 | NUR ---
Uneventful Pt cooperative with care, A/O x 3, taking in adequate PO intake and good appetite. Pt c/o of headache, given Tylenol with good relief. Family with pt most of the day, brought cupcakes for pt's birthday. Pt resting comfortably in bed with call light within reach, bed low and locked, intentional rounding.
[2017-02-04] VITALS (9 sets, daily range): BP systolic 144–159; BP diastolic 66–71; PULSE 61–77; RESP 20–22; O2SAT 96–98
[2017-02-04] MEDS: Heparin 5,000 Unit/mL Inj SUBQ SCH ×2 (00:11→08:20)
[2017-02-04] MEDS: Albuterol-Ipratropium 3 mL Inhalation Solution NEB SCH ×3 (00:20→14:39)
--- NOTE | 2017-02-04 03:51 | NUR ---
Uneventful Night Pt denies any pain/N/V/SOB/dizziness/vertigo/fever/chills. Lung sounds clear, Tele:SR PACs PVCs HR 70s per manufacturing quality technician. no murmur. Abdomen soft, some tenderness at left quadrant,which r/o renal cancer and occurred after nephrology per pt. BT active. Adequate urine output. VSS. Sleeping comfortably most of night.
[2017-02-04] MEDS: Ascorbic Acid 500 mg Tablet PO SCH (08:22)
[2017-02-04] MEDS: Sodium Chloride LOK Flush 10 mL Syringe IVFLUSH SCH (08:23)
[2017-02-04] MEDS: CALCIPOTRIENE 0.005% TOPICAL SCH (08:23)
[2017-02-04] MEDS: Omega-3 Fatty Acids 1,000 mg Capsule PO SCH (08:23)
[2017-02-04] MEDS: MeTOProlol XL 25 mg ER24 Tablet PO SCH (08:28)
[2017-02-04] MEDS: FEBUXOSTAT 40 MG PO SCH (08:30)
[2017-02-04] MEDS: Fluticasone 0.05% 15 Spray/2 Gm 16 Gm Nasal Spray NOSTRIL SCH (08:30)
[2017-02-04] MEDS: Fluticasone-Salmererol 250-50 Inhaler INHALATION SCH (08:30)
[2017-02-04] MEDS ORDERED: HYG25 PO (11:34)
[2017-02-04] MEDS ORDERED: IPRA3AMP NEB (11:34)
[2017-02-04] MEDS ORDERED: LISI-567 PO (11:34)
--- NOTE | 2017-02-04 11:37 | NUR ---
Social Work: Discharge Data: Pt is on day 3 of hospitalization. EMR reviewed. D/C orders are in. No d/c planning needs at this time. PARCEL POST TRUCK DRIVER will continue to follow if needs arise. Assessment: Pt who is independent at baseline. Plan: Pt will d/c home via POV with spouse today. No d/c planning needs at this time. PARCEL POST TRUCK DRIVER will continue to follow if needs arise. SANFORD Marx
--- NOTE | 2017-02-04 11:40 | PCM.DIMED ---
Discharge Instructions Date of Service February 04, 2017 Dates of Hospitalization February 01, 2017 at 22:09 Discharge Diagnosis Discharge Diagnosis Drug-induced acute kidney injury (resolved) CK D stage III Solitary kidney status post previous nephrectomy Hyperkalemia Hypertension COPD Metabolic syndrome Diet Heart Healthy, Renal Diet Activity No restrictions (gradually return to normal daily activities) Call your provider Shortness of breath, Chest pain, Excessive diarrhea, Weakness (unilateral) Patient Instructions Please limit the amount of NSAIDs such as ibuprofen, Motrin, Advil, naproxen as these medications can cause damage to your kidney. Follow-up plan Follow-up with the cardiac MRI Follow-up Provider: [facility] Follow-up with PCP in: 1 week Provider: Franklin Magallanes DO Follow-up in: 2 weeks (If an appointment has not been made please call to schedule and appointment) Additional Information Please call to schedule your cardiac MRI appointment [phone] Gail Rogel DO February 04, 2017 11:40
--- NOTE | 2017-02-04 11:52 | PCM.DC.MED ---
Discharge Summary Date of Service February 04, 2017 Dates of Hospitalization Date of Hospital Admission February 01, 2017 at 22:09 Date of Discharge: February 04, 2017 Providers: Admitting Physician: Cherelle Rangel DO [facility] Attending Physician: Cherelle Rangel DO Diagnosis at Time of Discharge Diagnosis at Time of Discharge Drug-induced acute kidney injury (resolved) CK D stage III Solitary kidney status post previous nephrectomy Hyperkalemia Hypertension COPD Metabolic syndrome Procedures XRay, CTs & MRIs US RETROPERITONEAL SONOGRAM IMPRESSION: 1. Normal ultrasound appearance of right kidney. No hydronephrosis. 2. Left nephrectomy. 3. Cholelithiasis with a non-mobile gallstone. Dictated by: Barbara Leo M.D. on 02/01/2017 at 21:31 Approved by: Barbara Leo M.D. on 02/01/2017 at 21:35 . ECG 12 Lead NSR, low voltage leads likely secondary to habitus Cardiac Echo Impression Echocardiogram Report Name: LOU DENISE Study Date: 02/04/2017 Height: 66 in Hospital Exam Location: [facility] Weight: 241 lb Gender: Female BSA: 2.2 m2 : 1945 Age: 72 yrs BP: 162/73 mmHg Reason For Study: HTN Ordering Physician: MOSES ESPINOZA Performed By: Paulino Garces Referring Physician: Hood CHAENY Interpretation Summary The left ventricle is not well visualized but left ventricular systolic function is probably normal with the ejection fraction grossly estimated to be 55-60% with possible mild proximal and mid posterior wall hypokinesis that grossly appears slightly improved since the previous echo. There are no other obvious focal wall motion abnormalities. Compared to the prior exam, left ventricular function appears slightly improved. The E/A ratio is reversed with an elevated E/E', suggesting impaired early relaxation of the left ventricle with possible increased filling pressures and is likely unchanged compared to the previous study. The right ventricle grossly appears normal in size with probable normal systolic function and is unchanged compared to the previous study. The right ventricular systolic pressure is estimated at 34 mmHg assuming a right atrial pressure of 3 mm Hg. Comparison with the previous study is not possible because this was unable to be assessed on the previous study. The left atrium is mildly dilated and right atrial size is normal. Both appear unchanged compared to the previous study. There is mild tricuspid regurgitation that is more prominent compared to the previous study but there is no other significant valvular heart disease. Reading Physician:02:59 PM Brief History Lou Denise is a 71 year old man with a PMH of Left renal cell carcinoma s/p radical nephrectomy, MA, iron deficiency anemia, hyperlipidemia, COPD, depression, BPH, and HTN who presents at the request of his PCP(Dr. Howell) who in the course of running routine labs he was found to have a potassium of 6.8. He was entirely asymptomatic prior to arrival. The patient had unremarkable ECG upon presentation to the ED. He denies chest pain, palpitations, abdominal pain , or changes in bowel or bladder habits. In the ED the patient was given Insulin and glucose, Kayexalate, and started on IV fluids per Dr. Chaney who was made aware of the case and will likely see the patient tomorrow AM. Hospital Course Lou Denise is a 71 year old male with a PMH of Left renal cell carcinoma s/p radical nephrectomy in 2015 who presents at the behest of his PCP who in the course of routine lab work observed hyperkalemia, which was measured at 6.8 upon presentation. Patient presented to the emergency room after a course of routine labs was found to have a potassium of 6.8. The patient was instructed to come to the emergency room immediately. The patient responded well to Kayexalate and his hyperkalemia has resolved. At this time the patient has been diagnosed with CKD stage III and Dr. Chaney (nephrology) has made some adjustments the patient 's medications. The patient was also diagnosed with acute kidney injury most likely drug induced. The patient has been instructed to limit the amount of use of any NSAIDs. The patient should not use NSAIDs if at all possible only because he only has 1 kidney left. The patient as per recommendation by nephrology should have a cardiac MRI done in order to do a full workup of his metabolic syndrome. The patient's metabolic syndrome could potentially be contributing to the patient's kidney disease and worsening it. 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 Patient should also have a cardiac MRI performed in the next day or 2. For full hospital course see below: Hyperkalemia, POA, likely acute. (Resolved) -Likely secondary to CKD stage III and COURTNEY drug-induced, baseline Cr uncertain as he has no labs on file and PCP is not in our system -Currently 5.2 (within normal limits) 6.8 upon presentation, 6.0 upon re- assessment, serial measures q4 -Patient given Insulin, glucose, and Kayexalate in the ED -Continue home Albuterol/ipratropium bromide -Discontinue NS @ 100 ml/hr -Telemetry monitoring -Echo shows EF of 55-60% there are some changes noted on the echo however it seems similar to previous echo. -Dr. Chaney (nephrology) following S/P radical nephrectomy, POA, chronic. (Resolving) -Currently creatinine is 1.65 trending down -Elevated blood pressures being managed by nephrology -Avoid nephrotoxic medications -Dr. Chaney (nephrology) following HTN, POA, chronic. active -Start lisinopril 10 mg daily -Start chlorthalidone 25 mg daily -HOLD home Losartan 25 mg PO daily -Continue home Metoprolol Tartrate 12.5 mg PO BID -Continue home amlodipine 5 mg PO daily COPD, POA, chronic. Active -Switched home med to DuoNeb -Continue home Singulair -Monitor O2 -Supplemental O2 as needed for O2 sat > 86 Other chronic conditions managed with home meds -Depression: Continue home Sertraline -Unspecified neuropathy: Continue home Gabapentin -BPH: Continue home Prazosin Metabolic Syndrome -Hemoglobin A1c 5.7 pre DM -Continue heart healthy diet Code Status: FULL CODE Exam Vital Signs (Last) Date Time Temp Pulse Resp B/P Pulse Ox O2 Delivery O2 Flow Rate FiO2 02/04/17 11:23 61 02/04/17 10:22 36.6 22 159/71 97 Room Air Exam Physical Exam: GEN: Patient was awake, alert, responding appropriately to questions HEENT: Pupils equal round and reactive to light, extraocular eye muscles intact , Neck soft supple, trachea midline, nomocephalic/atraumatic CV: +S1/S2, regular rate and rhythm, no murmurs auscultated Respiratory: CTAB, no wheezes, rales, rhonchi GI: +bowel sounds x4, soft, compressible, nontender to palpation, obese EXT: no clubbing, cyanosis, edema Neuro: Cranial nerves II-XII grossly intact Psych: mood and affect were appropriate Test 02/01/17 17:58 02/01/17 19:15 02/02/17 05:30 02/02/17 14:00 Urine Color Yellow (YELLOW) Urine Appearance Clear (CLEAR,HAZY) Urine pH 5.5 (5.0-8.0) Urine Specific [place] 1.020 (1.003-1.035) Urine Protein Tracemg/dL (NEG,TRACE) Urine Glucose (UA) Negativemg/dL (NEGATIVE) Urine Ketones Negativemg/dL (NEGATIVE) Urine Occult Blood Negative (NEGATIVE) Urine Nitrite Negative (NEGATIVE) Urine Bilirubin Negative (NEGATIVE) Urine Urobilinogen Normalmg/dL (NORMAL) Urine Leukocyte Esterase Negative (NEGATIVE) Urine RBC 0-2/hpf (0-2) Urine WBC 0-5/hpf (0-5) Urine Epithelial Cells Occasional/hpf (NONE-MOD) Urine Crystals None seen (NONE SEEN) Urine Bacteria None/hpf (NONE-FEW) Urine Hyaline Casts None/lpf (NONE) Urine Granular Casts Rare (NONE SEEN) Urine Waxy Casts None seen (NONE SEEN) Urine Red Blood Cell Casts None seen (NONE SEEN) Urine White Blood Cell Casts None seen (NONE SEEN) Urine Mucus None seen (None Seen) Urine Trichomonas None seen (NONE SEEN) Urine Yeast None (NONE SEEN) Urinalysis Comment None Urine Culture Reflexed Not indicated Hold Peterson Top Tube Received (Received) White Blood Count 7.7th/mm3 (3.8-10.1) Red Blood Count 4.55mil/mm3 (4.40-5.80) Hemoglobin 12.6g/dL (13.8-17.2) Hematocrit 38.1% (41.0-50.0) Mean Corpuscular Volume 83.7fL (81-100) Mean Corpuscular Hemoglobin 27.7pg (27.0-35.0) Mean Corpuscular Hemoglobin Concent 33.1% (32.0-37.0) Red Cell Distribution Width 14.3% (12.3-15.4) Platelet Count 238bil/L (150-400) Neutrophils (%) (Auto) 81.8% (40-74) Lymphocytes (%) (Auto) 12.5% (14-46) Monocytes (%) (Auto) 5.2% (4-12) Eosinophils (%) (Auto) 0% (0-5) Basophils (%) (Auto) 0.1% (0-3) Erythrocyte Sedimentation Rate 39mm/hr (0-30) Uric Acid 4.7mg/dL (2.6-7.2) Rheumatoid Factor 11.0IU/mL (0.0-13.9) Anti-Nuclear Antibody Screen Negative (Negative) Hepatitis A IgM Antibody Negative (Negative) Hepatitis B Surface Antigen Negative (Negative) Hepatitis B Core IgM Antibody Negative (Negative) Hepatitis C Antibody <0.1s/co ratio (0.0-0.9) Hepatitis C Comment Comment (.) Test 02/02/17 19:57 02/03/17 05:37 02/04/17 05:15 02/04/17 05:45 Urine Random Creatinine 80mg/dL (22-328) Urine Random Microalbumin 103.8ug/mL (Not Estab.) Hemoglobin A1c 5.7% (4.8-5.6) Total Bilirubin 0.2mg/dL (0.0-1.2) Aspartate Amino Transf (AST/SGOT) 15U/L (0-50) Alanine Aminotransferase (ALT/SGPT) 9U/L (0-44) Alkaline Phosphatase 100U/L (25-160) Total Protein 7.5g/dL (6.4-8.4) Albumin 3.7g/dL (3.4-5.0) Sodium Level 139mEq/L (134-144) Potassium Level 5.1mEq/L (3.5-5.2) Chloride Level 106mEq/L (97-108) Carbon Dioxide Level 18mmol/L (18-29) Blood Urea Nitrogen 33mg/dL (8-27) Creatinine 1.54mg/dL (0.76-1.27) Estimat Glomerular Filtration Rate 47mL/min (>59) Glucose Level 120mg/dL (60-99) Calcium Level 9.1mg/dL (8.5-10.1) Hold Urine Received (Received) Discharge Medications Discharge Medications Albuterol/Ipratropium (Combivent Respimat Inhal [place]) 120 Spr/4 Gm Inhaler 1 PUFF IH QID (Reported) Amlodipine (Amlodipine) 5 Mg Tablet 5 MG PO DAILY (Reported) Ascorbic Acid (Vitamin C) 500 Mg Capsule.er 500 MG PO DAILY (Reported) Aspirin (Aspirin) 81 Mg Tablet 81 MG PO DAILY (Reported) Atorvastatin (Lipitor) 10 Mg Tab 10 MG PO DAILY (Reported) Budesonide/Formoterol 160-4.5 mcg Inh (Symbicort 160-4.5 mcg Inh) 120 Puff Inhaler 1 PUFF INHALATION BID (Reported) Calcipotriene Cream (Calcipotriene Cream) 30 Appl/60 Gm Cream 1 APPLIC TOPICAL BID (Reported) Chlorthalidone (Chlorthalidone) 25 Mg Tablet 25 MG PO DAILY Prescribed by: GAIL HICKS DO Cholecalciferol (Vitamin D3) (Vitamin D3) 1,000 Unit Tab.chew 2,000 UNIT PO DAILY (Reported) Cyanocobalamin (Vitamin B-12) (Vitamin B-12) 1,000 Mcg Tab.subl 1,000 MCG SL DAILY (Reported) Febuxostat (Uloric) 40 Mg Tablet 40 MG PO DAILY (Reported) Ferrous Sulfate (Ferrous Sulfate) 325 Mg Tablet 325 MG PO Q2DAY (Reported) Fluticasone Propionate (Fluticasone Propionate Nasal) 16 Gm [place].susp 2 SPRAY NS DAILY (Reported) Gabapentin (Gabapentin) 300 Mg Capsule 300 MG PO HS (Reported) Ipratropium/Albuterol Sulfate (Iprat-Albut 0.5-3(2.5) mg/3 mL Inhalant Soln) 3 Ml Ampul.neb 3 ML NEB Q6 Prescribed by: GAIL HICKS DO Lisinopril (Lisinopril) 20 Mg Tablet 20 MG PO DAILY Prescribed by: GAIL HICKS DO Metoprolol Succinate ER (Metoprolol Succinate ER) 25 Mg Tab.er.24h 12.5 MG PO BID (Reported) Montelukast (Montelukast) 10 Mg Tablet 10 MG PO DAILY (Reported) Plains-3/Dha/Epa/Fish Oil (Fish Oil 1,000 mg Softgel) 1 Each Capsule 1 EACH PO BID (Reported) Omeprazole (Omeprazole) 20 Mg Capsule.dr 20 MG PO BID (Reported) Prazosin (Prazosin) 1 Mg Capsule 3 MG PO HS (Reported) Sertraline HCl (Sertraline) 100 Mg Tablet 100 MG PO DAILY (Reported) As needed Acetaminophen/Codeine 300-30mg (Acetaminophen/Codeine 300-30mg) 1 Each Tablet 1 TABLET PO QID PRN PRN Pain (Reported) Carbamide Peroxide (Earwax Treatment Drops) 6.5 % Drops 5-10 DROP OT BID PRN PRN ear wax removal (Reported) Lidocaine (Lidoderm) 700 Mg Adh..patch 1 PATCH TP DAILY PRN PRN For Pain ( Reported) Lidocaine Cream (Lidocaine Cream) 5 Gm Cream..g. 1 APPLIC TOPICAL DAILY PRN PRN joint pain (Reported) Followup Plan Follow-up plan Follow-up with the cardiac MRI Discharge Diet: Heart Healthy, Renal Diet Discharge Activity: No restrictions (gradually return to normal daily activities) Patient Instructions Please limit the amount of NSAIDs such as ibuprofen, Motrin, Advil, naproxen as these medications can cause damage to your kidney. Follow-up Provider: GUS ADAMENE TASHA Follow-up with PCP in: 1 week Provider: Franklin Chaney DO Follow-up in: 2 weeks (If an appointment has not been made please call to schedule and appointment) Time spent Greater than 35 minutes copies to: GUS ADAMENE Gail Arnold DO February 04, 2017 11:52
--- NOTE | 2017-02-04 12:21 | PCM.PNNEPH ---
Subjective Date of Service February 04, 2017 Subjective Patient continues to do well. His breathing is improved and his blood pressures are considerably better. His intake and output and I do not being accurately kept. His urine did not show any significant amount of microalbumin. Sodium this morning is 139, potassium 5.1, chloride 106, bicarbonate 18, BUN and creatinine were 33 and 1.5 respectively. Exam Vital Signs Vital Sign - Last Date Time Temp Pulse Resp B/P Pulse Ox O2 Delivery O2 Flow Rate FiO2 02/04/17 11:23 61 02/04/17 10:22 36.6 22 159/71 97 Room Air Intake and Output 02/03/17 02/03/17 02/04/17 Cumulative From/Thru 15:00 23:00 07:00 02/01/17 17:09 - 02/04/17 05:50 Intake Total 2667 ml Output Total 350 ml 2575 ml Balance -350 ml 92 ml Intake Oral 1396 ml IV Total 1271 ml Output Urine Total 350 ml 2575 ml # Voids 1 # Bowel Movements 1 Exam Neck is supple without adenopathy, thyromegaly, or jugular venous distention. Lungs are clear though somewhat diminished. Heart is regular and rhythmical with a soft systolic murmur. Abdomen is soft without any tenderness, rebound, guarding, masses, or hepatosplenomegaly. Extremities do not show any evidence of any clubbing, cyanosis, or edema. Lab and Diagnostics Result Diagram: 02/02/17 0530 02/04/17 0515 X-Rays, CTs and MRIs US RETROPERITONEAL SONOGRAM IMPRESSION: 1. Normal ultrasound appearance of right kidney. No hydronephrosis. 2. Left nephrectomy. 3. Cholelithiasis with a non-mobile gallstone. Dictated by: Barbara Leo M.D. on 02/01/2017 at 21:31 Approved by: Barbara Leo M.D. on 02/01/2017 at 21:35 . 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 I have placed an order for an outpatient cardiac MRI on Monday and if he is going to be discharged between now and Monday please make sure that this has been fully arranged. If he is discharged today or tomorrow I would like to see him in my office in about 3-4 weeks. Franklin Magallanes DO February 04, 2017 12:21
--- NOTE | 2017-02-04 15:00 | DRSVH ---
[facility] [address] [place] [address] Echocardiogram Report Name: LOU CRANE Study Date: 02/04/2017 Height: 66 in Hospital Exam Location: [facility] Weight: 241 lb Gender: Female BSA: 2.2 m2 : 1945 Age: 72 yrs BP: 162/73 mmHg Reason For Study: HTN Ordering Physician: MOSES ESPINOZA Performed By: Paulino Garces Referring Physician: Hood CHANEY Interpretation Summary The left ventricle is not well visualized but left ventricular systolic function is probably normal with the ejection fraction grossly estimated to be 55-60% with possible mild proximal and mid posterior wall hypokinesis that grossly appears slightly improved since the previous echo. There are no other obvious focal wall motion abnormalities. Compared to the prior exam, left ventricular function appears slightly improved. The E/A ratio is reversed with an elevated E/E', suggesting impaired early relaxation of the left ventricle with possible increased filling pressures and is likely unchanged compared to the previous study. The right ventricle grossly appears normal in size with probable normal systolic function and is unchanged compared to the previous study. The right ventricular systolic pressure is estimated at 34 mmHg assuming a right atrial pressure of 3 mm Hg. Comparison with the previous study is not possible because this was unable to be assessed on the previous study. The left atrium is mildly dilated and right atrial size is normal. Both appear unchanged compared to the previous study. There is mild tricuspid regurgitation that is more prominent compared to the previous study but there is no other significant valvular heart disease. Procedure: A two-dimensional transthoracic echocardiogram with color flow and Doppler was performed. The study quality was technically difficult. Comparison is made with the echocardiogram of 01/21/16. Images from the parasternal window were very difficult to obtain and are suboptimal in quality. The patient was in normal sinus rhythm during the exam. The patient had frequent PVCs during the exam. Left Ventricle: The left ventricle is not well visualized. The left ventricle is normal in size. There is normal left ventricular wall thickness. Left ventricular systolic function is probably normal. The ejection fraction is estimated to be 55-60%. Compared to the prior exam, left ventricular function is slightly improved. There is possible proximal and mid posterior wall hypokinesis that grossly appears slightly improved since the previous echo. There are no other obvious focal wall motion abnormalities. The E/A ratio is reversed with an elevated E/E', suggesting impaired early relaxation of the left ventricle with possible increased filling pressures. This is unchanged compared to the previous study. Right Ventricle: The right ventricle grossly appears normal in size with probable normal systolic function. This is unchanged compared to the previous study. Atria: The left atrium is mildly dilated. Right atrial size is normal. This is unchanged compared to the previous study. The interatrial septum is intact with no evidence for an atrial septal defect. Mitral Valve: The mitral valve is grossly normal. There is trace mitral regurgitation. This is unchanged compared to the previous study. Aortic Valve: The aortic valve is trileaflet. The aortic valve is slightly calcified. The aortic valve opens well. No aortic regurgitation is present. Tricuspid Valve: The tricuspid valve is normal in structure and function. There is mild tricuspid regurgitation. This is more prominent compared to the previous study. The right ventricular systolic pressure is estimated at 34 mmHg assuming a right atrial pressure of 3 mm Hg. Comparison with the previous study is not possible because this was unable to be assessed on the previous study. Pulmonic Valve: The pulmonic valve is normal in structure and function. There is trace pulmonic regurgitation. There is no other significant valvular heart disease. Great Vessels: The aortic root is normal size. The dimensions of the ascending aorta are normal. The pulmonary artery is normal size. The IVC is of normal diameter and collapses greater than 50% with a sniff. This suggests a low right atrial pressure of 3 mm Hg. Pericardium/ Pleura There is no pericardial effusion. There is no pleural effusion. MMode/2D Measurements & Calculations LA A2 area RA long axis asc Aorta Diam: 3.1 cm EDV(MOD-sp2) Ao Arch Diam (Prox RA area Trans): 2.8 cm ESV(MOD-sp2) LA A4 area : 19.5 cm EF(MOD-sp2) LA length (vol) RA vol: 60.5 ml RA LA vol: 77.0 ml : 27.9 mm2 LA vol index IVC diam: 2.1 cm Doppler Measurements & Calculations Ao V2 max MV E max huang MV E/A: 0.78 TR max huang : 159.2 cm/sec : 101.9 cm/sec Med Peak E' Huang : 279.5 cm/sec Ao max PG MV A max huang TR max P.3 mmHg : 10.1 mmHg : 130.2 cm/sec E/E' med: 19.7 PA V2 max: 84.3 cm/sec Ao mean PG Pulm A Revs Dur PA mean P.7 mmHg : 6.4 mmHg PA Accel Time: 0.12 sec MV A dur: 0.13 sec MV V2 mean Ao V2 mean PA V2 mean Pulm A Revs Dur - MV A : 67.7 cm/sec : 122.7 cm/sec : 63.2 cm/sec Dur: -0.04 msec MV mean PG Ao V2 VTI: 41.3 cm MV V2 VTI MV dec time : 0.22 sec Reading Physician:02:59 PM
--- NOTE | 2017-02-04 17:01 | NUR ---
Student Nurse Note: Pt has been resting, pleasantly awaiting discharge. Pt denies pain, S.O.B., and chest pain. O2 sat 95% RA.
--- NOTE | 2017-02-04 17:29 | NUR ---
discharge paperwork reviewed, no questions at this time. pt denies pain/distress. pt transported via W/C to private car to return to private home. belongings carried by . pt thankful for the care he received while here.
== END 2017-02-04 17:40 | disposition home or self-care (01) | DRG 641 ==
LOC: SED 17:03 → MPC 22:09 → INTOOBSV 22:09 → OBSVTOIN 22:09
PROVIDERS: ADMIT Internal Medicine; ATTEND Internal Medicine
DX: E87.5 Hyperkalemia (principal); N17.9 Acute kidney failure, unspecified; I13.10 Hypertensive heart and chronic kidney disease without heart failure, with stage 1 through stage 4 chronic kidney disease, or unspecified chronic kidney disease; N18.3 Chronic kidney disease, stage 3 (moderate); J44.9 Chronic obstructive pulmonary disease, unspecified; E88.81 Metabolic syndrome and other insulin resistance; Z90.5 Acquired absence of kidney; Z85.528 Personal history of other malignant neoplasm of kidney; F32.9 Major depressive disorder, single episode, unspecified; N40.0 Benign prostatic hyperplasia without lower urinary tract symptoms; G62.9 Polyneuropathy, unspecified; E66.01 Morbid (severe) obesity due to excess calories; T39.395A Adverse effect of other nonsteroidal anti-inflammatory drugs [NSAID], initial encounter; Z68.38 Body mass index [BMI] 38.0-38.9, adult